=== PATIENT | female | born 1940 | race Caucasian/White ===

== ENCOUNTER 2017-04-13 13:57 | Emergency (ER) | payer MEDICARE, OTHER ==
[~2017-04-13] VITALS: Ht 170.2 cm; Wt 75.0 kg
[2017-04-13 13:58] VITALS: TEMP 98.6
[2017-04-13] MEDS ORDERED: ZOCOR 20MG20 MG PO (14:00)
[2017-04-13] MEDS ORDERED: ZOCOR 40MG40 MG PO (14:00)
[2017-04-13] MEDS ORDERED: DESYREL DIVIDO300 MG PO (14:00)
[2017-04-13] MEDS ORDERED: PROZAC 10MG10 MG PO (14:01)
[2017-04-13] MEDS ORDERED: KEPPRA 500MG500 MG PO (14:01)
[2017-04-13] MEDS ORDERED: LEVOXYL0.125 MG PO (14:01)
[2017-04-13] MEDS ORDERED: ZANTAC 150MG T150 MG PO (14:14)
[2017-04-13 14:23] LABS: BASO % 0.6 % (0.0-2.0); EOS % 0.2 % (0-4.0); GRAN # 3.4 (1.4-6.5); GRAN % 62.9 % (42.2-75.2); HEMATOCRIT 41.2 % (37.0-47.0); HEMOGLOBIN 13.7 g/dl (12.5-16.0); LYMPH # 1.4 (1.2-3.4); LYMPH % 26.1 % (20.0-51.0); MEAN CELL VOLUME 94 fl (80.0-100.0); MEAN CORPUSCULAR HEMOGLOBIN 31 pg (27.0-31.0); MEAN CORPUSCULAR HGB CONC 33 g/dl (33.0-37.0); MEAN PLATELET VOLUME 9.9 fl (7.4-10.4); MONO # 0.5 (0.1-0.6); MONO % 9.8 % (1.7-9.3); PLATELET COUNT 203 K/mm3 (130-400); RED BLOOD COUNT 4.38 M/mm3 (4.10-5.30); WHITE BLOOD COUNT 5.4 K/mm3 (4.8-10.8)
[2017-04-13 14:31] LABS: PROTHROMBIN TIME 11.4 SECONDS (9.7-12.8)
[2017-04-13 14:34] LABS: PARTIAL THROMBOPLASTIN TIME 27.9 SECONDS (26.0-37.0)
[2017-04-13 14:53] LABS: ADJUSTED CALCIUM 9.7 mg/dL (8.4-10.2); ALANINE AMINOTRANSFERASE 25 U/L (9-52); ALBUMIN 3.8 gm/dL (3.5-5.0); ALKALINE PHOSPHATASE 46 U/L (50-136); ANION GAP 6 mmol/L (7-16); BILIRUBIN,TOTAL 0.4 mg/dL (0.0-1.0); BLOOD UREA NITROGEN 17 mg/dL (7-17); CALCIUM 9.5 mg/dL (8.4-10.2); CARBON DIOXIDE 24 mmol/L (22-30); CHLORIDE 110 mmol/L (98-107); CREATININE, serum 0.84 mg/dL (0.52-1.25); GLUCOSE 100 mg/dL (74-106); LIPASE 123 U/L (23-300); SODIUM 139 mmol/L (137-145); TOTAL PROTEIN 6.6 gm/dL (6.4-8.2)
[2017-04-13] MEDS ORDERED: ASPIRIN E.C. 8181 MG PO (15:03)
[2017-04-13 15:04] LABS: B-TYPE NATRIURETIC PEPTIDE 176 pg/mL (0-450)
[2017-04-13] MEDS ORDERED: NITROSTAT0.4 MG/TAB SL (15:04)
[2017-04-13 15:15] LABS: TROPONIN-I < 0.012 ng/mL (0.000-0.034)
[2017-04-13 16:44] VITALS: BP 146/79; PULSE 73
== END 2017-04-13 17:06 | disposition short-term general hospital (02) ==
LOC: COL.ER 13:57
PROVIDERS: Emergency Medicine
DX: R07.9 Chest pain, unspecified (principal); I25.2 Old myocardial infarction; I25.10 Atherosclerotic heart disease of native coronary artery without angina pectoris; E78.00 Pure hypercholesterolemia, unspecified; F17.210 Nicotine dependence, cigarettes, uncomplicated; Z95.5 Presence of coronary angioplasty implant and graft; Z86.718 Personal history of other venous thrombosis and embolism; Z79.82 Long term (current) use of aspirin
CPT/HCPCS: J2270; J7030; J7050; Q9967

== ENCOUNTER → 2017-06-08 | Outpatient (CLI) | payer MEDICARE, OTHER ==
[~2017-06-08] MED LIST: ASPIRIN E.C. 8181 MG PO; DESYREL DIVIDO300 MG PO; KEPPRA 500MG500 MG PO; LEVOXYL0.125 MG PO; NITROSTAT0.4 MG/TAB SL; PROZAC 10MG10 MG PO; ZANTAC 150MG T150 MG PO; ZOCOR 20MG20 MG PO; ZOCOR 40MG40 MG PO
== END ==
LOC: COL.RAD 13:58
DX: M43.12 Spondylolisthesis, cervical region (principal); M54.9 Dorsalgia, unspecified

== ENCOUNTER 2017-06-27 09:47 | Inpatient (IN) | payer MEDICARE, OTHER ==
[~2017-06-27] VITALS: Ht 152.4 cm; Wt 80.9 kg
[2017-06-27] MEDS ORDERED: LIORESAL 1010 MG/TAB PO (10:16)
[2017-06-27] MEDS ORDERED: NEURONTIN100 MG/CAP PO (10:16)
[2017-06-27] MEDS ORDERED: PRINIVIL10 MG PO (10:17)
[2017-06-27] MEDS ORDERED: NORCO 325 MG-51 TAB PO (10:17)
[2017-06-27] MEDS ORDERED: DESYREL DIVIDO300 MG PO (10:18)
[2017-06-27 10:20] LABS: BASO % 0.7 % (0.0-2.0); EOS # 0.1 (0.0-0.7); EOS % 1.1 % (0-4.0); GRAN # 3.4 (1.4-6.5); GRAN % 59.6 % (42.2-75.2); HEMATOCRIT 38.1 % (37.0-47.0); HEMOGLOBIN 12.3 g/dl (12.5-16.0); LYMPH # 1.6 (1.2-3.4); LYMPH % 28.7 % (20.0-51.0); MEAN CELL VOLUME 97 fl (80.0-100.0); MEAN CORPUSCULAR HEMOGLOBIN 31 pg (27.0-31.0); MEAN CORPUSCULAR HGB CONC 32 g/dl (33.0-37.0); MONO # 0.6 (0.1-0.6); MONO % 9.7 % (1.7-9.3); PLATELET COUNT 161 K/mm3 (130-400); RED BLOOD COUNT 3.93 M/mm3 (4.10-5.30); REDCELL DISTRIBUTION WIDTH-CV 13.5 % (11.5-14.5)
[2017-06-27 10:23] LABS: PROTHROMBIN TIME 11.3 SECONDS (9.7-12.8)
[2017-06-27 10:35] LABS: ALBUMIN 3.9 gm/dL (3.5-5.0); BILIRUBIN,TOTAL 0.3 mg/dL (0.0-1.0); C-REACTIVE PROTEIN 1.1 mg/dL (0.0-0.9); CALCIUM 9.6 mg/dL (8.4-10.2); CREATININE, serum 0.94 mg/dL (0.52-1.25); POTASSIUM 4.4 mmol/L (3.4-5.0); TOTAL PROTEIN 6.7 gm/dL (6.4-8.2)
[2017-06-27] MEDS ORDERED: PRIL40 PO (11:20)
[2017-06-27 12:45] VITALS: BP 119/68; PULSE 58; TEMP 97.8
[2017-06-27 15:21] VITALS: BP 130/75; PULSE 57; TEMP 98
[2017-06-27 19:47] VITALS: BP 131/63; PULSE 74; TEMP 97.8
[2017-06-28] VITALS (8 sets, daily range): BP systolic 80–150; BP diastolic 50–78; PULSE 57–70; TEMP 97.4–98.7
[2017-06-28 06:42] LABS: BASO % 0.7 % (0.0-2.0); EOS # 0.1 (0.0-0.7); EOS % 1.2 % (0-4.0); GRAN # 2.8 (1.4-6.5); GRAN % 46.6 % (42.2-75.2); HEMATOCRIT 37.6 % (37.0-47.0); HEMOGLOBIN 12.2 g/dl (12.5-16.0); LYMPH # 2.5 (1.2-3.4); LYMPH % 41.5 % (20.0-51.0); MEAN CELL VOLUME 98 fl (80.0-100.0); MEAN CORPUSCULAR HEMOGLOBIN 32 pg (27.0-31.0); MEAN CORPUSCULAR HGB CONC 32 g/dl (33.0-37.0); MEAN PLATELET VOLUME 10.3 fl (7.4-10.4); MONO # 0.6 (0.1-0.6); MONO % 9.8 % (1.7-9.3); PLATELET COUNT 161 K/mm3 (130-400); RED BLOOD COUNT 3.85 M/mm3 (4.10-5.30); REDCELL DISTRIBUTION WIDTH-CV 13.3 % (11.5-14.5)
[2017-06-28 06:43] LABS: ALBUMIN 3.7 gm/dL (3.5-5.0); BILIRUBIN,TOTAL 0.4 mg/dL (0.0-1.0); CALCIUM 9.6 mg/dL (8.4-10.2); CHOLESTEROL RISK RATIO 2.4; CREATININE, serum 0.83 mg/dL (0.52-1.25); POTASSIUM 5.2 mmol/L (3.4-5.0); TOTAL PROTEIN 6.4 gm/dL (6.4-8.2)
[2017-06-28 11:39] LABS: MUCOUS Present /lpf; PH 5 (5-8); URINE APPEARANCE Clear; URINE BACTERIA None Seen /hpf; URINE BILIRUBIN Negative (NEGATIVE); URINE BLOOD Negative (NEGATIVE); URINE COLOR Yellow; URINE GLUCOSE Negative (NEGATIVE); URINE KETONE Negative (NEGATIVE); URINE LEUKOCYTE ESTERASE 2+ (NEGATIVE); URINE NITRATE Negative (NEGATIVE); URINE PROTEIN(semi-quant) Negative (NEGATIVE); URINE UROBILINOGEN Negative (NEGATIVE)
[2017-06-28 11:43] LABS: COLLECTION METHOD CLEAN CATCH
[2017-06-29 03:17] VITALS: BP 146/69; PULSE 64; TEMP 97.8
[2017-06-29 06:58] LABS: CREATININE, serum 0.73 mg/dL (0.52-1.25); POTASSIUM 3.5 mmol/L (3.4-5.0)
[2017-06-29 07:00] LABS: BASO % 0.5 % (0.0-2.0); EOS # 0.1 (0.0-0.7); GRAN # 3.1 (1.4-6.5); GRAN % 52.2 % (42.2-75.2); HEMATOCRIT 37.2 % (37.0-47.0); HEMOGLOBIN 12.3 g/dl (12.5-16.0); LYMPH # 2.1 (1.2-3.4); LYMPH % 35.7 % (20.0-51.0); MEAN CELL VOLUME 94 fl (80.0-100.0); MEAN CORPUSCULAR HEMOGLOBIN 31 pg (27.0-31.0); MEAN CORPUSCULAR HGB CONC 33 g/dl (33.0-37.0); MEAN PLATELET VOLUME 10.3 fl (7.4-10.4); MONO # 0.6 (0.1-0.6); MONO % 10.4 % (1.7-9.3); PLATELET COUNT 161 K/mm3 (130-400); RED BLOOD COUNT 3.97 M/mm3 (4.10-5.30)
[2017-06-29 08:34] VITALS: BP 151/82; PULSE 82; TEMP 97.9
[2017-06-29 11:52] VITALS: BP 134/66; PULSE 67; TEMP 98.4
[2017-06-29] MEDS ORDERED: NICODERM C21 MG/PATC TD (12:41)
[2017-06-29] MEDS ORDERED: PLAVIX 75MG TAB75 MG PO (12:42)
[2017-06-29] MEDS ORDERED: PRINIVIL5 MG PO (12:47)
[2017-06-29] MEDS ORDERED: CEPHALEXIN500 M1 PO (12:49)
[2017-07-03] MEDS ORDERED: COLACE 100100 MG/CAP PO (09:27)
[2017-07-03] MEDS ORDERED: FOLIC ACID 11 MG/TA1 PO (09:28)
[2017-07-03] MEDS ORDERED: B-121000 MCG PO (09:30)
[2017-07-03] MEDS ORDERED: KEPPRA 500MG500 MG PO (17:19)
== END 2017-06-29 16:10 | disposition home health service (06) | DRG 65 ==
LOC: COL.ER 09:47 → MEDICAL 10:49
PROVIDERS: Family Medicine; Internal Medicine; Physician Assistant
DX: I63.9 Cerebral infarction, unspecified (principal); G81.91 Hemiplegia, unspecified affecting right dominant side; N39.0 Urinary tract infection, site not specified; I10 Essential (primary) hypertension; F17.210 Nicotine dependence, cigarettes, uncomplicated; G89.29 Other chronic pain; M51.36 Other intervertebral disc degeneration, lumbar region
CPT/HCPCS: 99223-AI; 99233-AI; 99239; J0696; J1650

== ENCOUNTER 2017-07-23 16:01 | Emergency (ER) | payer MEDICARE, OTHER ==
[~2017-07-23] VITALS: Ht 167.6 cm; Wt 79.5 kg
[~2017-07-23 16:01] MED LIST changes: +B-121000 MCG PO; +CEPHALEXIN500 M1 PO; +COLACE 100100 MG/CAP PO; +FOLIC ACID 11 MG/TA1 PO; +LIORESAL 1010 MG/TAB PO; +NEURONTIN100 MG/CAP PO; +NICODERM C21 MG/PATC TD; +NORCO 325 MG-51 TAB PO; +PLAVIX 75MG TAB75 MG PO; +PRIL40 PO; +PRINIVIL10 MG PO; +PRINIVIL5 MG PO
[2017-07-23 16:51] LABS: COLLECTION METHOD CLEAN CATCH
[2017-07-23 17:05] LABS: MUCOUS Present /lpf; PH 5 (5-8); URINE APPEARANCE Clear; URINE BACTERIA None Seen /hpf; URINE BILIRUBIN Negative (NEGATIVE); URINE BLOOD Negative (NEGATIVE); URINE COLOR Yellow; URINE GLUCOSE Negative (NEGATIVE); URINE KETONE Negative (NEGATIVE); URINE LEUKOCYTE ESTERASE 1+ (NEGATIVE); URINE NITRATE Negative (NEGATIVE); URINE PROTEIN(semi-quant) Negative (NEGATIVE); URINE RBC 0-2 /hpf; URINE UROBILINOGEN Negative (NEGATIVE)
[2017-07-23] MEDS ORDERED: MEDROL 4MG DOSPA4 MG PO (17:23)
[2017-07-23] MEDS ORDERED: CEPHALEXIN500 M1 PO (17:23)
[2017-07-23 18:00] VITALS: BP 103/67; PULSE 75; TEMP 97.9
== END 2017-07-23 18:10 | disposition home or self-care (01) ==
LOC: COL.ER 16:01
PROVIDERS: Emergency Medicine
DX: N39.0 Urinary tract infection, site not specified (principal); M54.16 Radiculopathy, lumbar region; I10 Essential (primary) hypertension; E78.5 Hyperlipidemia, unspecified; E03.9 Hypothyroidism, unspecified; F17.210 Nicotine dependence, cigarettes, uncomplicated; Z86.73 Personal history of transient ischemic attack (TIA), and cerebral infarction without residual deficits; Z86.79 Personal history of other diseases of the circulatory system; Z90.710 Acquired absence of both cervix and uterus; Z98.890 Other specified postprocedural states; Z79.82 Long term (current) use of aspirin; Z79.02 Long term (current) use of antithrombotics/antiplatelets
CPT/HCPCS: J7512

== ENCOUNTER 2017-08-08 08:50 | Outpatient (CLI) | payer MEDICARE, OTHER ==
[~2017-08-08] VITALS: Ht 170.2 cm; Wt 79.1 kg
[~2017-08-08 08:50] MED LIST changes: +MEDROL 4MG DOSPA4 MG PO
[2017-08-08 09:09] VITALS: BP 148/79; PULSE 71
[2017-08-08 10:55] VITALS: BP 125/70; PULSE 63
[2017-08-08 10:58] VITALS: BP 125/70; PULSE 62
[2017-08-08 11:00] VITALS: BP 105/65; PULSE 63
[2017-08-08 11:15] VITALS: BP 144/87; PULSE 60
[2017-08-08 11:30] VITALS: BP 140/85; PULSE 58
== END 2017-08-08 12:10 | disposition home or self-care (01) ==
LOC: COL.RAD 08:50
DX: M51.36 Other intervertebral disc degeneration, lumbar region (principal); M48.061 Spinal stenosis, lumbar region without neurogenic claudication; M89.38 Hypertrophy of bone, other site; G62.9 Polyneuropathy, unspecified; Z90.13 Acquired absence of bilateral breasts and nipples; Z96.659 Presence of unspecified artificial knee joint
CPT/HCPCS: Q9965

== ENCOUNTER 2017-08-30 14:13 | Observation (INO) | payer MEDICARE, OTHER ==
[~2017-08-30] VITALS: Ht 170.2 cm; Wt 80.0 kg
[2017-08-30] MEDS ORDERED: CYMBALTA 20MG20 MG PO (14:28)
[2017-08-30 14:44] LABS: BASO % 0.4 % (0.0-2.0); EOS % 0.2 % (0-4.0); GRAN % 62.6 % (42.2-75.2); HEMATOCRIT 39.9 % (37.0-47.0); HEMOGLOBIN 13.1 g/dl (12.5-16.0); LYMPH # 1.4 (1.2-3.4); MEAN CELL VOLUME 94 fl (80.0-100.0); MEAN CORPUSCULAR HEMOGLOBIN 31 pg (27.0-31.0); MEAN CORPUSCULAR HGB CONC 33 g/dl (33.0-37.0); MEAN PLATELET VOLUME 10.3 fl (7.4-10.4); MONO # 0.4 (0.1-0.6); MONO % 7.6 % (1.7-9.3); PLATELET COUNT 188 K/mm3 (130-400); RED BLOOD COUNT 4.23 M/mm3 (4.10-5.30); REDCELL DISTRIBUTION WIDTH-CV 12.7 % (11.5-14.5)
[2017-08-30 14:57] LABS: INR 0.9 (0.8-3.0); PROTHROMBIN TIME 10.2 SECONDS (9.7-12.8)
[2017-08-30 14:58] LABS: ALBUMIN 3.6 gm/dL (3.5-5.0); ANION GAP 9 mmol/L (7-16); BLOOD UREA NITROGEN 13 mg/dL (7-17); CARBON DIOXIDE 26 mmol/L (22-30); CHLORIDE 106 mmol/L (98-107); CREATININE, serum 0.76 mg/dL (0.52-1.25); GLUCOSE 110 mg/dL (74-106); POTASSIUM 4.5 mmol/L (3.4-5.0); SODIUM 141 mmol/L (137-145)
[2017-08-30 14:59] LABS: ALANINE AMINOTRANSFERASE 20 U/L (9-52); ALKALINE PHOSPHATASE 51 U/L (50-136); AST,SGOT 23 U/L (15-37); BILIRUBIN,TOTAL < 0.1 mg/dL (0.0-1.0); CALCIUM 9.7 mg/dL (8.4-10.2); TOTAL PROTEIN 6.7 gm/dL (6.4-8.2)
[2017-08-30 15:08] LABS: TROPONIN-I < 0.012 ng/mL (0.000-0.034)
[2017-08-30 15:23] LABS: LIPASE 136 U/L (23-300)
[2017-08-30 15:24] LABS: C-REACTIVE PROTEIN < 0.5 mg/dL (0.0-0.9)
[2017-08-30 19:35] VITALS: BP 129/67; PULSE 73; TEMP 98.6
[2017-08-30 20:44] VITALS: BP 130/72; PULSE 74
[2017-08-30 20:52] VITALS: BP 118/68; PULSE 72
[2017-08-31] VITALS (7 sets, daily range): BP systolic 111–140; BP diastolic 54–73; PULSE 65–82; TEMP 97.8–98
[2017-08-31 06:48] LABS: EOS % 0.7 % (0-4.0); GRAN # 1.9 (1.4-6.5); GRAN % 44.1 % (42.2-75.2); HEMATOCRIT 38.3 % (37.0-47.0); HEMOGLOBIN 12.3 g/dl (12.5-16.0); LYMPH # 1.8 (1.2-3.4); LYMPH % 43.8 % (20.0-51.0); MEAN CELL VOLUME 97 fl (80.0-100.0); MEAN CORPUSCULAR HEMOGLOBIN 31 pg (27.0-31.0); MEAN CORPUSCULAR HGB CONC 32 g/dl (33.0-37.0); MEAN PLATELET VOLUME 10.4 fl (7.4-10.4); MONO # 0.4 (0.1-0.6); MONO % 10.2 % (1.7-9.3); PLATELET COUNT 176 K/mm3 (130-400); RED BLOOD COUNT 3.95 M/mm3 (4.10-5.30); REDCELL DISTRIBUTION WIDTH-CV 12.8 % (11.5-14.5)
[2017-08-31 07:06] LABS: ANION GAP 7 mmol/L (7-16); BLOOD UREA NITROGEN 17 mg/dL (7-17); CALCIUM 9.4 mg/dL (8.4-10.2); CARBON DIOXIDE 28 mmol/L (22-30); CHLORIDE 107 mmol/L (98-107); CHOLESTEROL 122 mg/dL (120-200); GLUCOSE 98 mg/dL (74-106); HDL CHOLESTEROL 57 mg/dL; POTASSIUM 4.4 mmol/L (3.4-5.0); SODIUM 142 mmol/L (137-145); TRIGLYCERIDE 117 mg/dL
[2017-08-31 07:10] LABS: CHOLESTEROL RISK RATIO 2.1; LDL CHOLESTEROL 42 mg/dL
[2017-08-31 07:23] LABS: TROPONIN-I < 0.012 ng/mL (0.000-0.034)
[2017-08-31 07:36] LABS: TSH w REFLEX 0.416 uIU/mL (0.465-4.680)
[2017-08-31] MEDS ORDERED: ATIVAN 0.50.5 MG/TAB PO (12:26)
== END 2017-08-31 17:39 | disposition home or self-care (01) ==
LOC: COL.ER 14:13 → MEDICAL 17:08
PROVIDERS: Emergency Medicine; Nurse Practitioner
DX: R07.9 Chest pain, unspecified (principal); I10 Essential (primary) hypertension; E78.5 Hyperlipidemia, unspecified; E03.9 Hypothyroidism, unspecified; G47.33 Obstructive sleep apnea (adult) (pediatric); G47.00 Insomnia, unspecified; I67.1 Cerebral aneurysm, nonruptured; I69.392 Facial weakness following cerebral infarction; F17.210 Nicotine dependence, cigarettes, uncomplicated; Z90.13 Acquired absence of bilateral breasts and nipples; Z90.710 Acquired absence of both cervix and uterus; Z88.5 Allergy status to narcotic agent; Z96.652 Presence of left artificial knee joint; Z82.49 Family history of ischemic heart disease and other diseases of the circulatory system
CPT/HCPCS: A9502; G0378; J1650; J2785; J7030; Q9967

== ENCOUNTER 2017-09-18 17:54 | Emergency (ER) | payer MEDICARE ==
[~2017-09-18] VITALS: Ht 167.6 cm; Wt 80.9 kg
[~2017-09-18 17:54] MED LIST changes: +ATIVAN 0.50.5 MG/TAB PO; +CYMBALTA 20MG20 MG PO
[2017-09-18 17:56] VITALS: TEMP 97.8
[2017-09-18 18:19] LABS: BASO % 0.7 % (0.0-2.0); EOS % 0.3 % (0-4.0); GRAN # 3.9 (1.4-6.5); HEMATOCRIT 43.1 % (37.0-47.0); HEMOGLOBIN 14.4 g/dl (12.5-16.0); LYMPH # 1.7 (1.2-3.4); LYMPH % 27.2 % (20.0-51.0); MEAN CELL VOLUME 94 fl (80.0-100.0); MEAN CORPUSCULAR HEMOGLOBIN 31 pg (27.0-31.0); MEAN CORPUSCULAR HGB CONC 33 g/dl (33.0-37.0); MEAN PLATELET VOLUME 9.9 fl (7.4-10.4); MONO # 0.5 (0.1-0.6); MONO % 8.5 % (1.7-9.3); PLATELET COUNT 206 K/mm3 (130-400); RED BLOOD COUNT 4.59 M/mm3 (4.10-5.30); REDCELL DISTRIBUTION WIDTH-CV 12.6 % (11.5-14.5)
[2017-09-18 18:25] LABS: PROTHROMBIN TIME 10.9 SECONDS (9.7-12.8)
[2017-09-18 18:31] LABS: ALANINE AMINOTRANSFERASE 21 U/L (9-52); ALBUMIN 3.9 gm/dL (3.5-5.0); ALKALINE PHOSPHATASE 52 U/L (50-136); ANION GAP 10 mmol/L (7-16); AST,SGOT 19 U/L (15-37); BILIRUBIN,TOTAL 0.4 mg/dL (0.0-1.0); BLOOD UREA NITROGEN 17 mg/dL (7-17); CARBON DIOXIDE 25 mmol/L (22-30); CHLORIDE 105 mmol/L (98-107); CREATININE, serum 0.71 mg/dL (0.52-1.25); GLUCOSE 96 mg/dL (74-106); POTASSIUM 4.2 mmol/L (3.4-5.0); SODIUM 140 mmol/L (137-145); TOTAL PROTEIN 7.3 gm/dL (6.4-8.2)
[2017-09-18] MEDS ORDERED: AMBIEN 5MG TABLE5 MG PO (18:35)
[2017-09-18 18:39] LABS: C-REACTIVE PROTEIN 0.5 mg/dL (0.0-0.9)
[2017-09-18 18:49] LABS: TROPONIN-I < 0.012 ng/mL (0.000-0.034)
[2017-09-18 19:48] VITALS: BP 142/76; PULSE 65
[2017-09-18] MEDS ORDERED: ATIVAN 1MG T1 MG/TAB PO (19:49)
== END 2017-09-18 20:03 | disposition home or self-care (01) ==
LOC: COL.ER 17:54
PROVIDERS: Emergency Medicine
DX: R51 Headache (principal); T42.6X5A Adverse effect of other antiepileptic and sedative-hypnotic drugs, initial encounter; G47.00 Insomnia, unspecified; I10 Essential (primary) hypertension; I25.10 Atherosclerotic heart disease of native coronary artery without angina pectoris; I25.2 Old myocardial infarction; E78.5 Hyperlipidemia, unspecified; E03.9 Hypothyroidism, unspecified; F17.210 Nicotine dependence, cigarettes, uncomplicated; Z86.73 Personal history of transient ischemic attack (TIA), and cerebral infarction without residual deficits; Z90.710 Acquired absence of both cervix and uterus; Z96.652 Presence of left artificial knee joint; Z90.13 Acquired absence of bilateral breasts and nipples
CPT/HCPCS: J1885; J3010; J7030

== ENCOUNTER → 2017-10-04 | Outpatient (CLI) | payer MEDICARE ==
[~2017-10-04] MED LIST changes: +AMBIEN 5MG TABLE5 MG PO; +ATIVAN 1MG T1 MG/TAB PO
[2017-10-04 11:41] LABS: COLLECTION METHOD CLEAN CATCH
[2017-10-04 11:44] LABS: BASO % 0.5 % (0.0-2.0); EOS % 0.5 % (0-4.0); GRAN # 5.1 (1.4-6.5); GRAN % 68.7 % (42.2-75.2); HEMATOCRIT 45.7 % (37.0-47.0); HEMOGLOBIN 14.8 g/dl (12.5-16.0); LYMPH # 1.7 (1.2-3.4); LYMPH % 22.9 % (20.0-51.0); MEAN CELL VOLUME 96 fl (80.0-100.0); MEAN CORPUSCULAR HEMOGLOBIN 31 pg (27.0-31.0); MEAN CORPUSCULAR HGB CONC 32 g/dl (33.0-37.0); MEAN PLATELET VOLUME 10.1 fl (7.4-10.4); MONO # 0.5 (0.1-0.6); MONO % 7.1 % (1.7-9.3); PLATELET COUNT 231 K/mm3 (130-400); RED BLOOD COUNT 4.76 M/mm3 (4.10-5.30)
[2017-10-04 11:50] LABS: PH 5 (5-8); SQUAMOUS EPITHELIAL None Seen /hpf; URINE APPEARANCE Clear; URINE BACTERIA None Seen /hpf; URINE BILIRUBIN Negative (NEGATIVE); URINE BLOOD Negative (NEGATIVE); URINE COLOR Yellow; URINE GLUCOSE Negative (NEGATIVE); URINE KETONE Negative (NEGATIVE); URINE LEUKOCYTE ESTERASE Negative (NEGATIVE); URINE NITRATE Negative (NEGATIVE); URINE PROTEIN(semi-quant) Negative (NEGATIVE); URINE RBC 0-2 /hpf; URINE UROBILINOGEN Negative (NEGATIVE); URINE WBC 0-2 /hpf
[2017-10-04 12:01] LABS: ALBUMIN 4.5 gm/dL (3.5-5.0); BILIRUBIN,TOTAL 0.3 mg/dL (0.0-1.0); CALCIUM 10.1 mg/dL (8.4-10.2); CREATININE, serum 0.82 mg/dL (0.52-1.25); POTASSIUM 4.4 mmol/L (3.4-5.0); TOTAL PROTEIN 8.8 gm/dL (6.4-8.2)
== END ==
LOC: COL.RAD 10:20
PROVIDERS: Family Medicine
DX: R14.0 Abdominal distension (gaseous) (principal); R31.9 Hematuria, unspecified; K92.1 Melena

== ENCOUNTER → 2017-10-04 | Outpatient (CLI) | payer MEDICARE ==
[2017-10-04 19:49] VITALS: BP 120/72; PULSE 81; TEMP 98.7
== END ==
LOC: EUO 19:38
DX: R31.9 Hematuria, unspecified (principal); K92.1 Melena; R10.9 Unspecified abdominal pain
CPT/HCPCS: J7030

== ENCOUNTER → 2017-10-27 | Outpatient (CLI) | payer MEDICARE, OTHER | LOC: COL.RAD 09:30 | DX: M47.812 Spondylosis without myelopathy or radiculopathy, cervical region (principal); R91.1 Solitary pulmonary nodule ==

== ENCOUNTER 2017-11-06 19:55 | Emergency (ER) | payer MEDICARE ==
[~2017-11-06] VITALS: Ht 170.2 cm; Wt 82.3 kg
[2017-11-06 19:57] VITALS: TEMP 97.7
[2017-11-06 20:20] LABS: BASO % 0.5 % (0.0-2.0); EOS % 0.3 % (0-4.0); GRAN # 4.9 (1.4-6.5); GRAN % 66.5 % (42.2-75.2); HEMOGLOBIN 14.6 g/dl (12.5-16.0); LYMPH # 1.9 (1.2-3.4); LYMPH % 25.7 % (20.0-51.0); MEAN CELL VOLUME 93 fl (80.0-100.0); MEAN CORPUSCULAR HEMOGLOBIN 31 pg (27.0-31.0); MEAN CORPUSCULAR HGB CONC 33 g/dl (33.0-37.0); MEAN PLATELET VOLUME 10.1 fl (7.4-10.4); MONO # 0.5 (0.1-0.6); MONO % 6.7 % (1.7-9.3); PLATELET COUNT 232 K/mm3 (130-400); RED BLOOD COUNT 4.73 M/mm3 (4.10-5.30); REDCELL DISTRIBUTION WIDTH-CV 13.4 % (11.5-14.5)
[2017-11-06 20:29] LABS: ALBUMIN 4.3 gm/dL (3.5-5.0); BILIRUBIN,TOTAL 0.3 mg/dL (0.0-1.0); CALCIUM 9.9 mg/dL (8.4-10.2); CREATININE, serum 0.79 mg/dL (0.52-1.25); POTASSIUM 3.8 mmol/L (3.4-5.0); TOTAL PROTEIN 7.3 gm/dL (6.4-8.2)
[2017-11-06] MEDS ORDERED: ATIVAN 0.50.5 MG/TAB PO (21:25)
[2017-11-06 21:31] LABS: ACETAMINOPHEN < 10 ug/mL (10-30); ALCOHOL(ethanol),MEDICAL < 10 mg/dL; SALICYLATE < 1.0 mg/dL
[2017-11-06 21:46] LABS: TRICYCLIC ANTIDEPRESS URINE NEGATIVE
[2017-11-06 21:55] LABS: TSH w REFLEX 0.992 uIU/mL (0.465-4.680)
[2017-11-07 00:53] VITALS: BP 124/70; PULSE 82
== END 2017-11-07 00:53 | disposition home or self-care (01) ==
LOC: COL.ER 19:55
PROVIDERS: Emergency Medicine
DX: R51 Headache (principal); M54.2 Cervicalgia; I25.10 Atherosclerotic heart disease of native coronary artery without angina pectoris; I10 Essential (primary) hypertension; F32.9 Major depressive disorder, single episode, unspecified; E78.5 Hyperlipidemia, unspecified; F17.210 Nicotine dependence, cigarettes, uncomplicated; Z86.73 Personal history of transient ischemic attack (TIA), and cerebral infarction without residual deficits; Z95.5 Presence of coronary angioplasty implant and graft; F51.04 Psychophysiologic insomnia; Z90.13 Acquired absence of bilateral breasts and nipples; Z90.710 Acquired absence of both cervix and uterus
CPT/HCPCS: J2060; J2405; J3010; J7030; Q9967

== ENCOUNTER 2017-11-07 15:30 | Emergency (ER) | payer MEDICARE ==
[~2017-11-07] VITALS: Ht 152.4 cm; Wt 68.2 kg
[2017-11-07 15:38] VITALS: TEMP 97.5
[2017-11-07 15:53] LABS: BASO # 0.1 (0.0-0.2); BASO % 0.8 % (0.0-2.0); EOS % 0.3 % (0-4.0); GRAN # 4.1 (1.4-6.5); GRAN % 64.8 % (42.2-75.2); HEMATOCRIT 44.9 % (37.0-47.0); HEMOGLOBIN 15.1 g/dl (12.5-16.0); LYMPH # 1.7 (1.2-3.4); LYMPH % 26.5 % (20.0-51.0); MEAN CELL VOLUME 92 fl (80.0-100.0); MEAN CORPUSCULAR HEMOGLOBIN 31 pg (27.0-31.0); MEAN CORPUSCULAR HGB CONC 34 g/dl (33.0-37.0); MONO # 0.5 (0.1-0.6); MONO % 7.3 % (1.7-9.3); PLATELET COUNT 228 K/mm3 (130-400); RED BLOOD COUNT 4.88 M/mm3 (4.10-5.30); REDCELL DISTRIBUTION WIDTH-CV 13.4 % (11.5-14.5)
[2017-11-07 15:57] LABS: PROTHROMBIN TIME 10.9 SECONDS (9.7-12.8)
[2017-11-07 16:00] LABS: ACETAMINOPHEN < 10 ug/mL (10-30); ALANINE AMINOTRANSFERASE 32 U/L (9-52); ALBUMIN 4.3 gm/dL (3.5-5.0); ALCOHOL(ethanol),MEDICAL < 10 mg/dL; ALKALINE PHOSPHATASE 62 U/L (50-136); ANION GAP 11 mmol/L (7-16); AST,SGOT 33 U/L (15-37); BILIRUBIN,TOTAL 0.6 mg/dL (0.0-1.0); BLOOD UREA NITROGEN 19 mg/dL (7-17); CALCIUM 10.5 mg/dL (8.4-10.2); CARBON DIOXIDE 23 mmol/L (22-30); CHLORIDE 102 mmol/L (98-107); CREATININE, serum 0.74 mg/dL (0.52-1.25); GLUCOSE 117 mg/dL (74-106); POTASSIUM 4.1 mmol/L (3.4-5.0); SALICYLATE < 1.0 mg/dL; SODIUM 136 mmol/L (137-145); TOTAL PROTEIN 7.6 gm/dL (6.4-8.2)
[2017-11-07 16:11] LABS: TROPONIN-I < 0.012 ng/mL (0.000-0.034)
[2017-11-07 16:17] LABS: PROLACTIN 23.8 ng/mL (3.0-18.6)
[2017-11-07 16:18] LABS: COLLECTION METHOD CLEAN CATCH
[2017-11-07 16:25] LABS: PH 6 (5-8); SQUAMOUS EPITHELIAL 0-2 /hpf; URINE APPEARANCE Clear; URINE BACTERIA None Seen /hpf; URINE BILIRUBIN Negative (NEGATIVE); URINE BLOOD Negative (NEGATIVE); URINE COLOR Yellow; URINE GLUCOSE Negative (NEGATIVE); URINE KETONE Negative (NEGATIVE); URINE LEUKOCYTE ESTERASE Negative (NEGATIVE); URINE NITRATE Negative (NEGATIVE); URINE PROTEIN(semi-quant) Negative (NEGATIVE); URINE RBC 0-2 /hpf; URINE UROBILINOGEN Negative (NEGATIVE)
[2017-11-07 16:34] LABS: TRICYCLIC ANTIDEPRESS URINE NEGATIVE
[2017-11-07 17:37] VITALS: BP 125/68; PULSE 80
== END 2017-11-07 17:37 | disposition home or self-care (01) ==
LOC: COL.ER 15:30
PROVIDERS: Emergency Medicine
DX: R41.82 Altered mental status, unspecified (principal); F19.10 Other psychoactive substance abuse, uncomplicated; I10 Essential (primary) hypertension; E11.9 Type 2 diabetes mellitus without complications; E78.5 Hyperlipidemia, unspecified; E03.9 Hypothyroidism, unspecified; F32.9 Major depressive disorder, single episode, unspecified; I25.2 Old myocardial infarction; I25.10 Atherosclerotic heart disease of native coronary artery without angina pectoris; F17.210 Nicotine dependence, cigarettes, uncomplicated; Z86.73 Personal history of transient ischemic attack (TIA), and cerebral infarction without residual deficits; Z76.5 Malingerer [conscious simulation]; Z95.5 Presence of coronary angioplasty implant and graft; Z90.710 Acquired absence of both cervix and uterus; Z90.13 Acquired absence of bilateral breasts and nipples; Z72.89 Other problems related to lifestyle
CPT/HCPCS: J7030

== ENCOUNTER 2017-11-16 18:18 | Emergency (ER) | payer MEDICARE ==
[~2017-11-16] VITALS: Ht 167.6 cm; Wt 81.8 kg
[2017-11-16 18:22] VITALS: BP 155/86; TEMP 98.2
[2017-11-16] MEDS ORDERED: ATARAX 25MG25 MG/TAB PO (18:56)
[2017-11-16 19:18] VITALS: PULSE 79
== END 2017-11-16 19:18 | disposition home or self-care (01) ==
LOC: COL.ER 18:18
DX: S30.861A Insect bite (nonvenomous) of abdominal wall, initial encounter (principal); S30.860A Insect bite (nonvenomous) of lower back and pelvis, initial encounter; S20.462A Insect bite (nonvenomous) of left back wall of thorax, initial encounter; S20.461A Insect bite (nonvenomous) of right back wall of thorax, initial encounter; E78.5 Hyperlipidemia, unspecified; I10 Essential (primary) hypertension; E03.9 Hypothyroidism, unspecified; F17.210 Nicotine dependence, cigarettes, uncomplicated; L29.9 Pruritus, unspecified; Z90.710 Acquired absence of both cervix and uterus; Z86.73 Personal history of transient ischemic attack (TIA), and cerebral infarction without residual deficits; Z90.13 Acquired absence of bilateral breasts and nipples; W57.XXXA Bitten or stung by nonvenomous insect and other nonvenomous arthropods, initial encounter

== ENCOUNTER 2017-12-02 15:12 | Emergency (ER) | payer MEDICARE ==
[~2017-12-02] VITALS: Ht 167.6 cm; Wt 84.1 kg
[~2017-12-02 15:12] MED LIST changes: +ATARAX 25MG25 MG/TAB PO
[2017-12-02 15:14] VITALS: TEMP 98.3
[2017-12-02 15:36] LABS: BASO % 0.4 % (0.0-2.0); EOS % 0.1 % (0-4.0); GRAN # 5.2 (1.4-6.5); GRAN % 73.9 % (42.2-75.2); HEMATOCRIT 42.6 % (37.0-47.0); HEMOGLOBIN 14.2 g/dl (12.5-16.0); LYMPH # 1.3 (1.2-3.4); LYMPH % 18.3 % (20.0-51.0); MEAN CELL VOLUME 94 fl (80.0-100.0); MEAN CORPUSCULAR HEMOGLOBIN 31 pg (27.0-31.0); MEAN CORPUSCULAR HGB CONC 33 g/dl (33.0-37.0); MEAN PLATELET VOLUME 10.2 fl (7.4-10.4); MONO # 0.5 (0.1-0.6); PLATELET COUNT 233 K/mm3 (130-400); RED BLOOD COUNT 4.55 M/mm3 (4.10-5.30); REDCELL DISTRIBUTION WIDTH-CV 13.2 % (11.5-14.5)
[2017-12-02 15:42] LABS: ALANINE AMINOTRANSFERASE 28 U/L (9-52); ALKALINE PHOSPHATASE 58 U/L (50-136); ANION GAP 11 mmol/L (7-16); AST,SGOT 27 U/L (15-37); BILIRUBIN,TOTAL 0.4 mg/dL (0.0-1.0); BLOOD UREA NITROGEN 22 mg/dL (7-17); CALCIUM 9.4 mg/dL (8.4-10.2); CARBON DIOXIDE 22 mmol/L (22-30); CHLORIDE 106 mmol/L (98-107); CREATININE, serum 0.72 mg/dL (0.52-1.25); GLUCOSE 113 mg/dL (74-106); SODIUM 139 mmol/L (137-145); TOTAL PROTEIN 7.2 gm/dL (6.4-8.2)
[2017-12-02 15:44] LABS: ACETAMINOPHEN < 10 ug/mL (10-30); ALCOHOL(ethanol),MEDICAL < 10 mg/dL; SALICYLATE < 1.0 mg/dL
[2017-12-02 16:40] LABS: TRICYCLIC ANTIDEPRESS URINE NEGATIVE
[2017-12-02 16:52] LABS: COLLECTION METHOD CLEAN CATCH
[2017-12-02 17:04] LABS: MUCOUS Present /lpf; SQUAMOUS EPITHELIAL 0-2 /hpf; URINE BACTERIA None Seen /hpf; URINE RBC 0-2 /hpf
[2017-12-02 17:05] LABS: PH 5 (5-8); URINE APPEARANCE Clear; URINE BILIRUBIN Negative (NEGATIVE); URINE BLOOD Negative (NEGATIVE); URINE COLOR Yellow; URINE GLUCOSE Negative (NEGATIVE); URINE KETONE Negative (NEGATIVE); URINE LEUKOCYTE ESTERASE Negative (NEGATIVE); URINE NITRATE Negative (NEGATIVE); URINE PROTEIN(semi-quant) Negative (NEGATIVE); URINE UROBILINOGEN >=4.0 mg/dL (NEGATIVE)
[2017-12-02 18:59] LABS: CALCIUM 8.9 mg/dL (8.4-10.2); CREATININE, serum 0.72 mg/dL (0.52-1.25); POTASSIUM 3.5 mmol/L (3.4-5.0)
[2017-12-03 09:50] VITALS: BP 147/95; PULSE 73
== END 2017-12-03 10:16 ==
LOC: COL.ER 15:12
PROVIDERS: Emergency Medicine
DX: R51 Headache (principal); G89.29 Other chronic pain; R45.851 Suicidal ideations; I10 Essential (primary) hypertension; F17.210 Nicotine dependence, cigarettes, uncomplicated; Z86.79 Personal history of other diseases of the circulatory system
CPT/HCPCS: J1630; J7030